=== PATIENT | male | born 1980 ===

== ENCOUNTER 2018-10-05 13:51 | Emergency (ER) | payer BC ==
[2018-10-05] MEDS ORDERED: NITROGLYCERIN 0.4 MG TAB SL PRN (13:54)
[2018-10-05] MEDS ORDERED: ASPIRIN 81 MG CHEWABLE CTB PO STA (13:54)
[2018-10-05] MEDS ORDERED: MORPHINE SULFATE 10 MG/ML SOL IV PRN (13:54)
[2018-10-05] MEDS: SODIUM CHLORIDE 0.9% FLUSH 10 ML SOL IV PRN ×2 (13:58→14:40)
[2018-10-05] MEDS ORDERED: DILTIAZEM 5 MG/ML SOL IV ONE ×3 (14:02→14:21)
[2018-10-05] MEDS ORDERED: ASPIRIN 81 MG CHEWABLE CTB ONE (14:04)
[2018-10-05 14:05] LABS: BASOPHILS % (AUTO) 1 % (0-3); EOSINOPHILS % (AUTO) 2 % (0-9); HEMATOCRIT 48 % (39-53); HEMOGLOBIN 15.6 gm/dl (13.5-17.7); LYMPHOCYTES % (AUTO) 34.3 % (10-50); MEAN CORPUSCULAR HEMOGLOBIN 28.5 pg (27.0-32.0); MEAN CORPUSCULAR HGB CONC 32.5 gm/dl (32.0-36.0); MEAN CORPUSCULAR VOLUME 88 fL (80-100); MONOCYTES % (AUTO) 5.5 % (0-12); NEUTROPHILS % (AUTO) 57.5 % (37-80)
[2018-10-05 14:14] LABS: INR 1.02 (0.86-1.12)
[2018-10-05 14:22] LABS: BLOOD UREA NITROGEN 10 mg/dl (7-18); CARBON DIOXIDE 25.2 mEq/L (21-32); CHLORIDE 102 mMol/L (98-107); CREATINE KINASE 89 U/L (39-308); CREATININE 0.98 mg/dl (0.80-1.30); GLUCOSE 160 mg/dl (74-106); POTASSIUM 3.4 mMol/L (3.5-5.1); SODIUM 139 mMol/L (136-145); TROP I < 0.017 ng/ml (0.000-0.056)
[2018-10-05 14:32] VITALS: TEMP 97.8
[2018-10-05 15:19] VITALS: BP 128/81; PULSE 81; RESP 17; O2SAT 99
== END 2018-10-05 15:13 | disposition home or self-care (01) ==
LOC: ED 13:51
DX: R00.0 Tachycardia, unspecified (principal); I45.10 Unspecified right bundle-branch block
CPT/HCPCS: 71045; 80048; 82550; 84484; 85025; 85610; 85730; 93005; 96374; 99284; J3490

== ENCOUNTER 2018-10-06 08:46 | Emergency (ER) | payer BC ==
[2018-10-06 09:00] VITALS: TEMP 98.2
[2018-10-06] MEDS ORDERED: KETOROLAC TROMETHAMINE 30 MG/ML SOL IV ONE (09:07)
[2018-10-06] MEDS ORDERED: KETOROLAC TROMETHAMINE 30 MG/ML SOL ONE (09:16)
[2018-10-06 09:18] LABS: BASOPHILS % (AUTO) 1 % (0-3); EOSINOPHILS % (AUTO) 2 % (0-9); HEMATOCRIT 45 % (39-53); HEMOGLOBIN 15.2 gm/dl (13.5-17.7); LYMPHOCYTES % (AUTO) 30.4 % (10-50); MEAN CORPUSCULAR HGB CONC 33.5 gm/dl (32.0-36.0); MEAN CORPUSCULAR VOLUME 87 fL (80-100); MONOCYTES % (AUTO) 6.9 % (0-12); NEUTROPHILS % (AUTO) 59.4 % (37-80)
[2018-10-06] MEDS ORDERED: SODIUM CHLORIDE 0.9% 1000ML 1,000 ML IV ONE (09:28)
[2018-10-06 09:34] LABS: BLOOD UREA NITROGEN 9 mg/dl (7-18); CALCIUM 8.8 mg/dl (8.5-10.1); CARBON DIOXIDE 25.4 mEq/L (21-32); CHLORIDE 103 mMol/L (98-107); GLUCOSE 155 mg/dl (74-106); POTASSIUM 3.7 mMol/L (3.5-5.1); SODIUM 140 mMol/L (136-145); TROP I < 0.017 ng/ml (0.000-0.056)
[2018-10-06 09:39] LABS: CREATININE 0.95 mg/dl (0.80-1.30)
[2018-10-06 10:37] VITALS: O2SAT 97
[2018-10-06 14:18] VITALS: BP 132/93; PULSE 70; RESP 20
== END 2018-10-06 11:47 | disposition home or self-care (01) ==
LOC: ED 08:46
DX: R07.89 Other chest pain (principal); R06.02 Shortness of breath; D71 Functional disorders of polymorphonuclear neutrophils
CPT/HCPCS: 71275; 80048; 84484; 85025; 85378; 93005; 96365; 96366; 96374; 99284; 99285; J1885; Q9967

== ENCOUNTER 2018-10-09 00:23 | Emergency (ER) | payer BC ==
[2018-10-09] MEDS ORDERED: ASPIRIN 81 MG CHEWABLE CTB ONE (00:59)
[2018-10-09 01:02] VITALS: TEMP 97.9; O2SAT 98
[2018-10-09] MEDS ORDERED: ASPIRIN 81 MG CHEWABLE CTB PO ONE (01:02)
[2018-10-09 01:24] LABS: BASOPHILS % (AUTO) 1 % (0-3); EOSINOPHILS % (AUTO) 2 % (0-9); HEMATOCRIT 46 % (39-53); HEMOGLOBIN 15.6 gm/dl (13.5-17.7); MEAN CORPUSCULAR HEMOGLOBIN 29.4 pg (27.0-32.0); MEAN CORPUSCULAR HGB CONC 34.1 gm/dl (32.0-36.0); MEAN CORPUSCULAR VOLUME 86 fL (80-100); MONOCYTES % (AUTO) 6.6 % (0-12); NEUTROPHILS % (AUTO) 49.2 % (37-80)
[2018-10-09 01:37] LABS: HEMOGLOBIN A1C 5.9 % (4.8-6.0)
[2018-10-09 01:39] LABS: BLOOD UREA NITROGEN 11 mg/dl (7-18); CALCIUM 8.8 mg/dl (8.5-10.1); CARBON DIOXIDE 25.9 mEq/L (21-32); CHLORIDE 104 mMol/L (98-107); CREATININE 0.92 mg/dl (0.80-1.30); GLUCOSE 114 mg/dl (74-106); POTASSIUM 3.7 mMol/L (3.5-5.1); SODIUM 141 mMol/L (136-145); TROP I < 0.017 ng/ml (0.000-0.056)
[2018-10-09 01:54] VITALS: BP 117/90; PULSE 71; RESP 18
== END 2018-10-09 01:51 | disposition home or self-care (01) ==
LOC: ED 00:23
DX: R07.89 Other chest pain (principal); G56.22 Lesion of ulnar nerve, left upper limb; R73.09 Other abnormal glucose; R00.0 Tachycardia, unspecified
CPT/HCPCS: 36415; 80048; 83036; 84484; 85025; 93005; 93306; 99283; 99284; Q9957

== ENCOUNTER 2018-10-11 22:46 | Emergency (ER) | payer BC ==
[2018-10-11] MEDS ORDERED: ASPIRIN 81 MG CHEWABLE CTB ONE (23:04)
[2018-10-11] MEDS: ASPIRIN 81 MG CHEWABLE CTB PO ONE (23:05)
[2018-10-11 23:10] VITALS: TEMP 98.4
[2018-10-11] MEDS ORDERED: KETOROLAC TROMETHAMINE 30 MG/ML SOL ONE (23:10)
[2018-10-11] MEDS: KETOROLAC TROMETHAMINE 30 MG/ML SOL IM ONE (23:13)
[2018-10-11 23:19] LABS: BASOPHILS % (AUTO) 1 % (0-3); EOSINOPHILS % (AUTO) 2 % (0-9); HEMATOCRIT 42 % (39-53); HEMOGLOBIN 14.1 gm/dl (13.5-17.7); LYMPHOCYTES % (AUTO) 30.5 % (10-50); MEAN CORPUSCULAR HEMOGLOBIN 29.3 pg (27.0-32.0); MEAN CORPUSCULAR HGB CONC 33.8 gm/dl (32.0-36.0); MEAN CORPUSCULAR VOLUME 87 fL (80-100); MONOCYTES % (AUTO) 6.1 % (0-12); NEUTROPHILS % (AUTO) 60.4 % (37-80)
[2018-10-11 23:44] LABS: ALBUMIN 3.4 gm/dl (3.4-5.0); ALKALINE PHOSPHATASE 73 IU/L (46-116); ALT 18 IU/L (14-63); AST 10 IU/L (15-37); BILIRUBIN,TOTAL 0.2 mg/dl (0.2-1.0); BLOOD UREA NITROGEN 13 mg/dl (7-18); CARBON DIOXIDE 25.4 mEq/L (21-32); CHLORIDE 103 mMol/L (98-107); CREATININE 0.93 mg/dl (0.80-1.30); GLUCOSE 113 mg/dl (74-106); POTASSIUM 3.6 mMol/L (3.5-5.1); SODIUM 139 mMol/L (136-145); TOTAL PROTEIN 7.2 gm/dl (6.4-8.2); TROP I < 0.017 ng/ml (0.000-0.056)
[2018-10-12 00:38] VITALS: BP 118/94; PULSE 63; RESP 15; O2SAT 94
== END 2018-10-12 00:24 | disposition home or self-care (01) ==
LOC: ED 22:46
DX: R07.89 Other chest pain (principal); R07.9 Chest pain, unspecified; R05 Cough
CPT/HCPCS: 36415; 71045; 80053; 84484; 85025; 85378; 93005; 96372; 99283; 99285; J1885

== ENCOUNTER 2019-01-24 16:07 | Emergency (ER) | payer OTHER ==
[2019-01-24] MEDS ORDERED: SODIUM CHLORIDE 0.9% FLUSH 10 ML SOL IV PRN (16:22)
[2019-01-24] MEDS ORDERED: ALPRAZOLAM 0.25 MG TAB PO ONE (16:38)
[2019-01-24 16:44] LABS: BASOPHILS % (AUTO) 1 % (0-3); EOSINOPHILS % (AUTO) 2 % (0-9); HEMATOCRIT 43 % (39-53); HEMOGLOBIN 14.3 gm/dl (13.5-17.7); LYMPHOCYTES % (AUTO) 43.1 % (10-50); MEAN CORPUSCULAR HEMOGLOBIN 28.8 pg (27.0-32.0); MEAN CORPUSCULAR HGB CONC 33.4 gm/dl (32.0-36.0); MEAN CORPUSCULAR VOLUME 86 fL (80-100); MONOCYTES % (AUTO) 6.5 % (0-12); NEUTROPHILS % (AUTO) 47.1 % (37-80)
[2019-01-24] MEDS ORDERED: ALPRAZOLAM 0.5 MG TABLET PO ONE (16:55)
[2019-01-24 17:01] LABS: BLOOD UREA NITROGEN 6 mg/dl (7-18); CALCIUM 8.9 mg/dl (8.5-10.1); CARBON DIOXIDE 26.6 mEq/L (21-32); CHLORIDE 103 mMol/L (98-107); CREATINE KINASE 87 U/L (39-308); CREATININE 0.75 mg/dl (0.80-1.30); GLUCOSE 93 mg/dl (74-106); SODIUM 137 mMol/L (136-145); TROP I < 0.017 ng/ml (0.000-0.056)
[2019-01-24 17:30] VITALS: TEMP 97.8
[2019-01-24 17:49] VITALS: RESP 12; O2SAT 96
[2019-01-24 17:50] VITALS: BP 124/71; PULSE 63
== END 2019-01-24 17:42 | disposition home or self-care (01) ==
LOC: ED 16:07
DX: R07.9 Chest pain, unspecified (principal); R06.02 Shortness of breath
CPT/HCPCS: 36415; 71045; 80048; 82550; 84484; 85025; 85379; 93005; 99283; 99285; A9270-GY